=== PATIENT | female | born 1950 | race Caucasian/White ===

== ENCOUNTER 2018-07-11 13:50 | Outpatient (CLI) | payer MEDICARE, OTHER ==
--- NOTE | 2018-07-12 09:03 | Mammography Report ---
Reason: SCREENING MAMMO Procedure Date: 07/11/2018 Accession Number: [id number] / [id number] Procedure: JAMIE - Screening Mammo w/Omar CPT Code: FULL RESULT: EXAM: Screening Mammo w/Omar DATE: 07/11/2018 2:28 PM CLINICAL HISTORY: Screening. Personal history of treated right breast cancer status post lumpectomy in 1992. No reported family history of breast cancer. TECHNIQUE: Bilateral CC and MLO views were obtained. COMPARISON: 07/07/2017 through 06/24/2013 FINDINGS: The breasts demonstrate scattered fibroglandular densities bilaterally. Right breast: There are stable operative changes status post lumpectomy upper outer quadrant. There are no suspicious masses, calcifications or areas of nonoperative distortion. Left breast: There are no suspicious masses, calcifications or areas of distortion. IMPRESSION: Benign findings RECOMMENDATION: Routine annual screening unless otherwise clinically indicated. BI-RADS CATEGORY 2: Benign findings STANDARD QUALIFYING STATEMENTS: 1. This examination was not reviewed with the aid of Computer-Aided Detection (CAD). 2. A negative or benign imaging report should not preclude biopsy if clinically suspicious findings are present. 3. Dense breasts may obscure an underlying neoplasm. 4. This examination was reviewed with the aid of 3D breast imaging (tomosynthesis).
== END 2018-07-11 13:51 | disposition home or self-care (01) ==
LOC: DI 13:50
DX: Z12.31 Encounter for screening mammogram for malignant neoplasm of breast (principal); Z08 Encounter for follow-up examination after completed treatment for malignant neoplasm; Z85.3 Personal history of malignant neoplasm of breast
CPT/HCPCS: 77063; 77067

== ENCOUNTER 2019-07-11 08:57 | Outpatient (CLI) | payer MEDICARE, OTHER ==
--- NOTE | 2019-07-15 09:06 | Mammography Report ---
Reason: ROUTINE MAMMO Procedure Date: 07/11/2019 Accession Number: [id number] / [id number] Procedure: [facility] - Screening Mammo Dig Bilat CPT Code: Final Report FULL RESULT: EXAM: Screening Mammo Dig Bilat DATE: 07/11/2019 9:29 AM CLINICAL HISTORY: Screening encounter. Family history of breast cancer in the daughter at the age of 40. Personal history of breast cancer status post right lumpectomy in 1992. TECHNIQUE: (B) - Bilateral CC, laterally exaggerated CC, MLO views were obtained. COMPARISON: 07/11/2018 through 06/24/2013. PARENCHYMAL PATTERN: (D) - The breast(s) demonstrate(s) heterogeneously dense fibroglandular parenchyma. FINDINGS: Right breast lumpectomy changes are essentially unchanged, typically benign. There are no suspicious masses, calcifications, or areas of distortion. IMPRESSION: Benign findings. BI-RADS category 2. RECOMMENDATION: (ANNUAL) - Recommend routine annual screening mammography. BI-RADS CATEGORY: (2) - Benign Findings. STANDARD QUALIFYING STATEMENTS: 1. This examination was reviewed with the aid of Computer-Aided Detection (CAD). 2. A negative or benign imaging report should not preclude biopsy if clinically suspicious findings are present. 3. Dense breasts may obscure an underlying neoplasm. 4. This examination was reviewed without the aid of 3D breast imaging (tomosynthesis).
== END 2019-07-11 08:58 | disposition home or self-care (01) ==
LOC: DI.S 08:57
DX: Z12.31 Encounter for screening mammogram for malignant neoplasm of breast (principal); Z08 Encounter for follow-up examination after completed treatment for malignant neoplasm; Z85.3 Personal history of malignant neoplasm of breast; Z80.3 Family history of malignant neoplasm of breast
CPT/HCPCS: 77067

== ENCOUNTER 2023-12-21 14:19 | Outpatient (CLI) | payer MEDICARE, OTHER ==
--- NOTE | 2023-12-21 20:10 | XRAY Report ---
PROCEDURE: Shoulder 2+V BL INDICATIONS: BILATERAL SHOULDER PAIN TECHNIQUE: 4 views each of the right and left shoulders were acquired. COMPARISON: None. FINDINGS: Bones: No acute fractures or dislocations. No suspicious bony lesions. Visualized ribs appear inta ct. Degenerative changes are seen at the acromioclavicular joints bilaterally. Soft tissues: No suspicious soft tissue calcifications. The visualized lungs are within normal limi ts. Surgical clips are seen in the right axilla. 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 Reviewed by: Jc Leyva MD on 12/21/2023 8:09 PM PDT Approved by: Jc Leyva MD on 12/21/2023 8:09 PM PDT Station ID: [id number]
== END 2023-12-21 14:20 | disposition home or self-care (01) ==
LOC: DI 14:19
PROVIDERS: ATTEND Physician Assistant Surgical
DX: M19.011 Primary osteoarthritis, right shoulder (principal); M19.012 Primary osteoarthritis, left shoulder